=== PATIENT | male | born 1990 | race African-American/Black ===

== ENCOUNTER 2019-12-14 07:30 | Emergency (ER) | payer OTHER | END 2019-12-14 08:59 | disposition home or self-care (01) | LOC: M ED 07:30 | DX: S89.92XA Unspecified injury of left lower leg, initial encounter (principal); M25.462 Effusion, left knee; X58.XXXA Exposure to other specified factors, initial encounter; Y92.9 Unspecified place or not applicable; Y93.9 Activity, unspecified; Y99.1 Military activity ==